=== PATIENT | female | born 1945 | race Caucasian/White ===

== ENCOUNTER 2018-05-30 08:27 | Outpatient (REF) | payer MEDICARE, SELFPAY ==
[2018-05-30 13:25] LABS: HCT 43.8 % (36.0-46.0); Mean Corp. HGB Concentration 34.2 g/dL (32.0-36.0); Mean Corpuscular Volume 87.6 fL (80-95); Mean Platelet Volume 11.4 fL (8.0-11.0); Platelet Count 353 x1000/uL (130-400); RBC Distribution Width 13.1 % (11.7-14.6); White Blood Cell Count 10.93 k/cumm (4.4-10.8)
[2018-05-30 15:15] LABS: ALT 39 U/L (12-78); AST 15 U/L (15-37); Albumin 4.1 g/dL (3.4-5.0); Alkaline Phosphatase 109 U/L (46-116); BUN 12 mg/dL (7-18); Bilirubin, Total 0.7 mg/dL (0.2-1.0); CREATININE 0.64 mg/dL (0.55-1.02); Chloride 100 mmol/L (98-107); Cholesterol 268 mg/dL (50-200); Glucose 169 mg/dL (70-100); HDL Cholesterol 39 mg/dL (40-60); LDL CHOLESTEROL 184 mg/dL (<100); Potassium 4.3 mmol/L (3.5-5.1); Sodium 138 mmol/L (136-145); Total Protein 7.3 g/dL (6.4-8.2); Triglyceride 245 mg/dL (30-150)
== END 2018-05-30 08:47 ==
LOC: NCHCN 08:27
PROVIDERS: PCP Family Medicine; Visit Provider Family Medicine
DX: I10 Essential (primary) hypertension (principal); E11.9 Type 2 diabetes mellitus without complications; E78.5 Hyperlipidemia, unspecified; E66.9 Obesity, unspecified
CPT/HCPCS: 80053; 80061; 83721; 85027

== ENCOUNTER 2018-06-13 01:09 | Outpatient (CLI) | payer MEDICARE, SELFPAY ==
--- NOTE | 2018-06-13 17:05 | DI.MAMMO_ITS ---
SYMPTOM/DIAGNOSIS: SCREENING, Z12.31 MAMMOGRAMS: Mammograms were interpreted according to the usual protocol including computer analysis with CAD system, tomosynthesis and C view imaging. Comparison is made with prior examinations. Breast density, category B. No suspicious masses or microcalcifications are seen. The nodular density in the upper outer quadrant of the right breast appears stable. Overall there has been no significant change compared to the prior examinations. IMPRESSION: No evidence for malignancy. Yearly mammography is recommended. Category 2B. MQSA ASSESSMENT OF FINDINGS: Negative with benign findings. Category 2. Patient will receive a letter notifying them of these results. BI-RADS category B. There are scattered areas of fibroglandular density.
== END 2018-06-13 01:29 ==
PROVIDERS: PCP Family Medicine; Visit Provider Family Medicine
DX: Z12.31 Encounter for screening mammogram for malignant neoplasm of breast (principal)
CPT/HCPCS: 77063; 77067

== ENCOUNTER 2018-09-21 02:22 | Outpatient (CLI) | payer MEDICARE, SELFPAY ==
[2018-09-21] MEDS: Omnipaque 350 MG/ML 100 ML BTL IV (12:04)
--- NOTE | 2018-09-21 12:04 | DI.CT_ITS ---
SYMPTOMS/DIAGNOSIS: ABD PAIN, R10.9 CT OF THE ABDOMEN AND PELVIS: There are no prior comparison exams. Images were performed from the lung bases through the ischial tuberosities after IV and oral contrast. The heart size is normal. The lung bases are clear. The liver shows mild fatty infiltration. The spleen is normal in size. The pancreas and adrenals are unremarkable. There is mid scarring at the posterior aspect of the right kidney. There is no hydronephrosis or evidence of stones. The bladder is unremarkable. The patient is status post hysterectomy. There is diverticulosis of the sigmoid but no evidence of diverticulitis. The appendix is not identified. There is a lipoma at the hepatic flexure measuring 2.6 cm in greatest dimension. The aorta is normal in diameter and shows mild atherosclerotic changes. No suspicious bony abnormalities are identified. IMPRESSION: Mild fatty infiltration of the liver. Lipoma at the hepatic flexure of the colon. Diverticulosis without evidence of diverticulitis.
== END 2018-09-21 02:42 ==
PROVIDERS: PCP Family Medicine; Visit Provider Family Medicine
DX: R10.9 Unspecified abdominal pain (principal); K76.0 Fatty (change of) liver, not elsewhere classified; D17.79 Benign lipomatous neoplasm of other sites; K57.30 Diverticulosis of large intestine without perforation or abscess without bleeding
CPT/HCPCS: 74177; J3490

== ENCOUNTER 2018-10-30 16:31 | Outpatient (REF) | payer MEDICARE, SELFPAY | END 2018-10-30 16:51 | LOC: NCHCN 16:31 | PROVIDERS: PCP Family Medicine; Visit Provider Family Medicine | DX: R30.0 Dysuria (principal) | CPT/HCPCS: 87086 ==

== ENCOUNTER 2019-05-03 11:16 | Emergency (ER) | payer MEDICARE, SELFPAY ==
[2019-05-03 11:29] VITALS: BP 156/90; PULSE 92; RESP 20; TEMP 37.1; O2SAT 98
--- NOTE | 2019-05-03 11:36 | ED.GENADUL_ITS ---
Discharge Plan Disposition Patient Disposition: HOME Discharge Details Chief Complaint: Chest Pain Clinical Impression: Chest pain Primary Care Provider: Brie Robles ED Provider: Ivan Valenzuela Home Meds and New Rx's Prescriptions: New ibuprofen 600 mg tablet 600 mg PO Q8H PRN (Reason: pain) Qty: 30 RF: 0 Continued lisinopril 5 mg Tablet 5 mg PO DAILY RF: 0 Discharge Instructions Instructions: Chest Pain (ED) Additional Instructions: Please use [id number] lidocaine patches. Dose according to label. Please take ibuprofen 600mg by mouth every 6 hours as needed for pain. Please contact your primary care physician to arrange follow-up. Return to the ER for any worsening or new concerning symptoms. Referrals: Brie Robles [Primary Care Provider] - Discharge Data Discharge Date/Time-TO BE ENTERED AT DEPARTURE: 05/03/19 15:52 Medical Decision Making 11:40 --73-year-old female here with intermittent chest pain over the past 3 weeks worse since last night and persisted radiating to her central chest and back. Consider ACS although atypical presentation. Screening ECG was reviewed and interpreted by me: Sinus rhythm 91 bpm, Q waves noted in lead III, no STEMI, nondiagnostic. Will send troponin. Pain does seem pleuritic in nature. Plan to obtain CT of the chest to assess for pulmonary embolism. 1:20 --CT of the chest interpreted by radiology: Negative for acute process. Initial labs reviewed and nondiagnostic. --Labs reviewed and nondiagnostic. Patient reassessed and feeling much better. Consider muscular etiology. Disposition decision was made weighing the risks and benefits of hospitalization versus outpatient treatment, the risk for further decompensation, and the patient's wishes. The patient was stable and requested discharge. Prior to discharge, my usual and customary return precautions were reviewed with the patient - this included follow-up instructions and reason to return to the emergency department if condition worsens, does not improve as expected, or other new concerns arise. HPI General Mode of arrival: ambulatory . Date/Time Provider Initiated Documentation: 05/03/19 11:25 . Limitations to Documentation: no limitations . Information obtained by: patient . HPI Narrative: 73-year-old female here with chief complaint of chest pain. Patient notes intermittent right-sided chest pain over the past 3 weeks. Pain comes and then completely resolves. Patient notes she started have pain again last night and then worse this morning. Pain is now severe. Pain is localized to right anterior chest and radiates across her chest into her back. She has some associated shortness of breath that she has difficulty taking a deep inspiration as this worsens pain. Related Data Home Medications Medication Instructions Recorded Confirmed ibuprofen 600 mg PO Q8H PRN #30 tab 05/03/19 lisinopril 5 mg PO DAILY 05/03/19 05/03/19 Previous Rx's Medication Instructions Recorded ibuprofen 600 mg PO Q8H PRN #30 tab 05/03/19 Allergies Allergy/AdvReac Type Severity Reaction Status Date / Time codeine Allergy Intermediate Nausea Unverified 05/03/19 13:21 General Stated Complaint: Chest Pain DELICIA: 2 Review of Systems All systems reviewed & are unremarkable except as noted in HPI and below Constitutional Constitutional: Denies fever(s) Cardiovascular Cardiovascular: Reports chest pain and Reports dyspnea Respiratory Respiratory: Reports dyspnea Gastrointestinal Gastrointestinal: Reports nausea (Patient did have an episode of nausea and vomiting) PFSH Social History Smoking/Tobacco Use Status: Current every day Alcohol Intake: never Substance use type: does not use Do you feel safe at home: Yes Exam Const General: cooperative and no acute distress HENMT Mouth: moist mucous membranes Eyes Conjunctivae: normal conjunctivae Sclera: normal sclerae Neck Neck: trachea midline and supple Chest Chest: normal inspection of the chest, no crepitus and No rash Resp Auscultation: clear to auscultation bilaterally, no rales, no rhonchi and no wheezes Cardio Jugular venous pressure: no JVD Rate: regular rate and not tachycardic Rhythm: regular rhythm GI Palpation: soft, not firm, no guarding, no masses, not rigid and nontender Skin General skin exam: no rashes or lesions noted Neuro General: alert, awake, oriented x3 and tone normal Extrem General: no edema Psych Appearance: grossly normal Mental Status: mental status grossly normal Affect: anxious affect Course Vital Signs Vital signs: Vital Signs Temperature 37.1 C 05/03/19 11:29 Pulse 92 H 05/03/19 11:29 Respiratory Rate 20 05/03/19 11:29 Blood Pressure 156/90 H 05/03/19 11:29 Pulse Oximetry 98 05/03/19 11:29 Temperature 37.1 C 05/03/19 11:29 Temperature Source Skin 05/03/19 11:29 Pulse 92 H 05/03/19 11:29 Respiratory Rate 20 05/03/19 11:29 Respiratory Effort Non-Labored 05/03/19 11:33 Blood Pressure 156/90 H 05/03/19 11:29 Blood Pressure Position Supine 05/03/19 11:29 Pulse Oximetry 98 05/03/19 11:29 Oxygen Delivery Method Room Air 05/03/19 11:29 Oxygen Flow Rate 0 05/03/19 11:29 Pain Level 8 05/03/19 11:29
[2019-05-03 11:53] LABS: Abs Immature Grans 0.03 k/cumm (0.0-0.09); Absolute Basophil Count 0.06 k/cumm (0.0-0.2); Absolute Monocyte Count 0.78 k/cumm (0.11-0.7); Basophils % 0.4; Eosinophils % 4.3; HCT 47.3 % (36.0-46.0); HGB 16.1 g/dL (12.0-15.5); Immature Grans % 0.2; Lymphocytes % 26.2; Mean Corpuscular Hemoglobin 29.5 pg (27.0-33.0); Mean Corpuscular Volume 86.6 fL (80-95); Mean Platelet Volume 10.8 fL (8.0-11.0); Monocytes % 5.6; Neutrophils % 63.3; Platelet Count 332 x1000/uL (130-400); RBC 5.46 m/cumm (4.00-5.20); White Blood Cell Count 13.91 k/cumm (4.4-10.8)
[2019-05-03 12:04] LABS: Absolute Lymphocyte Count 3.64 k/cumm (1.2-3.4); Absolute Neutrophil Count 8.81 k/cumm (1.2-6.7)
[2019-05-03 12:13] LABS: ALT 43 U/L (14-59); AST 18 U/L (15-37); Albumin 4.1 g/dL (3.4-5.0); Alkaline Phosphatase 123 U/L (46-116); Anion Gap 9.1 mmol/L (3-11); BUN 9 mg/dL (7-18); Bilirubin, Total 0.5 mg/dL (0.2-1.0); CO2 27.9 mmol/L (21.0-32.0); CREATININE 0.54 mg/dL (0.55-1.02); Calcium 9.8 mg/dL (8.5-10.1); Chloride 101 mmol/L (98-107); Glucose 145 mg/dL (74-106); Lipase 116 U/L (73-393); Magnesium 1.9 mg/dL (1.8-2.4); Potassium 4.1 mmol/L (3.5-5.1); Sodium 138 mmol/L (136-145); Total Protein 7.7 g/dL (6.4-8.2)
[2019-05-03 12:15] LABS: Troponin I < 0.05 ng/Ml (<0.06)
[2019-05-03 12:22] VITALS: PULSE 89; RESP 20
[2019-05-03 12:28] VITALS: RESP 20
[2019-05-03 12:30] VITALS: PULSE 86; RESP 12
--- NOTE | 2019-05-03 12:30 | DI.CT_ITS ---
EXAM: CT CHEST PE CTA CLINICAL HISTORY: rt sided chest pain TECHNIQUE: Imaging Protocol: Axial CT angiography was performed with multislice acquisition and mul tiplanar and/or 3D reconstructions. CONTRAST MATERIAL: Intravenous: Omnipaque 350 Contrast volume:100 mL contrast route:IV - Oral:No COMPARISON: CT ABDOMEN PELVIS W from 09/21/2018 FINDINGS: Pulmonary Arteries: No evidence of filling defect to suggest pulmonary emboli. Tracheobronchial tree: Patent where visualized. Mediastinum and Awa: No dominant adenopathy or fluid collection. Pulmonary parenchyma: Dependent atelectasis is present. No focal consolidating infiltrate is present . No architectural distortion. Pleura: No effusion or pneumothorax. Heart/Aorta: Atherosclerosis. No aneurysm or dissection. The heart is not dilated. No pericardial e ffusion or evidence of right heart strain. Upper abdomen: Unremarkable. Bones: Degenerative changes. IMPRESSION: No evidence of a pulmonary embolus, thoracic aortic dissection or aneurysm. The findings were discussed with the Emergency Department on the date of the examination. DATA REPOSITORY: All CT scans at this facility are submitted to the National Radiology Data Registry (NRDR) Dose Index Registry (DIR) with the [employer] (ACR). RADIATION OPTIMIZATION: All CT scans at this facility use at least one of these dose optimization te chniques: automated exposure control; mA and/or kV adjustment per patient size (includes targeted exa ms where dose is matched to clinical indication); or iterative reconstruction.
[2019-05-03] MEDS: Omnipaque 350 MG/ML 100 ML BTL IJ (13:02)
[2019-05-03] MEDS: Ketorolac 30 MG/ML VIAL IVP (13:27)
[2019-05-03] MEDS: Normal Saline 500 ML 1000 ML IV (13:27)
[2019-05-03] MEDS: Lidocaine 5% Patch 1 PATCH (14:08)
[2019-05-03 15:03] VITALS: BP 154/89; PULSE 91; RESP 18; O2SAT 100
[2019-05-03 15:41] LABS: Troponin I < 0.05 ng/Ml (<0.06)
== END 2019-05-03 15:52 | disposition home or self-care (01) ==
PROVIDERS: Emergency Provider Student in an Organized Health Care Education/Training Program; PCP Family Medicine
DX: R07.9 Chest pain, unspecified (principal); R06.02 Shortness of breath; F17.210 Nicotine dependence, cigarettes, uncomplicated
CPT/HCPCS: 36415; 71275; 80053; 83690; 93005; 96361; 96374; 99285; 83735; 84484; 85025; 93010; J1885; J3490

== ENCOUNTER 2019-11-29 13:28 | Emergency (ER) | payer MEDICARE, SELFPAY ==
[2019-11-29 13:36] VITALS: BP 146/104; PULSE 121; RESP 20; TEMP 36.6; O2SAT 97
--- NOTE | 2019-11-29 14:00 | W.ED.GENAD ---
Discharge Plan Disposition Patient Disposition: HOME Condition: Stable Discharge Details Chief Complaint: Cellulitis Clinical Impression: Lipoma of arm, Abscess of arm, left Primary Care Provider: Brie Robles ED Provider: Barb Hall Home Meds and New Rx's Prescriptions: New sulfamethoxazole-trimethoprim [Bactrim DS] 800-160 mg tablet 1 tab PO BID 3 Days Qty: 6 RF: 0 No Action lisinopril 5 mg Tablet 5 mg PO DAILY RF: 0 ibuprofen 600 mg tablet 600 mg PO Q8H PRN (Reason: pain) Qty: 30 RF: 0 Discharge Instructions Instructions: Lipoma (ED), Abscess Incision and Drainage (DC) Additional Instructions: Take antibiotics as prescribed. Please stop antibiotics if any allergic reaction, swelling, sensitivity to sun occurs. Please take with lots of water be careful in the sun. Keep incision covered allow to air dry at least 1 to 2 hours a day. Return for any worsening redness, swelling, fever or chills. Follow up with primary care provider in 3-5 days. Return to ED sooner if any worsening or concerns. Increase oral fluids. Please take Tylenol or Ibuprofen with food every 4-6 hours as needed for pain and swelling. Referrals: Brie Robles [Primary Care Provider] - Howard Simmons MD [MD CONSULTING PHYSICIAN] - Discharge Data Discharge Date/Time-TO BE ENTERED AT DEPARTURE: 11/29/19 14:55 Medical Decision Making 4-year-old female presents with left posterior elbow nodule. Patient states that she has had this infected cyst intermittently for the last year. She was seen 1 month ago by primary care who prescribed her cephalexin 5 mg twice daily x10 days which she completed. Patient states that the cyst was unchanged until about 4 days ago when it increased in size and has increased tenderness. Denies any axilla lymphadenopathy, no surrounding erythema or swelling. She does have some excoriations noted on the surface of her left arm which she reports is from her dog scratching her. She is allergic to codeine does take lisinopril for hypertension. She denies fever chills, nausea or vomiting. She does report a upset stomach which is how I know I have an infection. 1403: Plan is to do an incision and drainage with a wound culture. Will place patient on Bactrim to cover for possible MRSA. 1434: Left posterior elbow cyst I&D need small amount of white thick discharge expressed, culture obtained. Does appear to be a solid nodule possibly a lipoma. Will refer to dermatology and place patient on 3 days of Bactrim twice daily to treat empirically for possible infection. Patient instructed on home care, verbalized understanding. HPI General Mode of arrival: ambulatory. Date/Time Provider Initiated Documentation: 11/29/19 13:32. Limitations to Documentation: no limitations. Information obtained by: patient. HPI Narrative: 74-year-old female presents with left posterior elbow nodule. Patient states that she has had this infected cyst intermittently for the last year. She was seen 1 month ago by primary care who prescribed her cephalexin 5 mg twice daily x10 days which she completed. Patient states that the cyst was unchanged until about 4 days ago when it increased in size and has increased tenderness. Denies any axilla lymphadenopathy, no surrounding erythema or swelling. She does have some excoriations noted on the surface of her left arm which she reports is from her dog scratching her. She is allergic to codeine does take lisinopril for hypertension. She denies fever chills, nausea or vomiting. She does report a upset stomach which is how I know I have an infection. Related Data Home Medications Medication Instructions Recorded Confirmed ibuprofen 600 mg PO Q8H PRN #30 tab 05/03/19 11/29/19 lisinopril 5 mg PO DAILY 05/03/19 11/29/19 sulfamethoxazole-trimethoprim 1 tab PO BID 3 Days #6 tab 11/29/19 [Bactrim DS] Previous Rx's Medication Instructions Recorded ibuprofen 600 mg PO Q8H PRN #30 tab 05/03/19 sulfamethoxazole-trimethoprim 1 tab PO BID 3 Days #6 tab 11/29/19 [Bactrim DS] Allergies Allergy/AdvReac Type Severity Reaction Status Date / Time codeine Allergy Intermediate Nausea Unverified 11/29/19 13:41 General Stated Complaint: Cellulitis DELICIA: 4 Review of Systems Narrative: Constitutional: Negative for weight loss, alert and oriented, well groomed, normal body habitus, appears comfortable. Denies fever chills HEENT: Denies trauma, headaches, blurry vision, nasal discharge, sore throat, trouble swallowing. Chest: Denies chest pain, palpitations, irregular rhythm, hypertension. Respiratory: Denies Shortness of breath, cough, hemoptysis. GI: Denies abdominal pain, nausea, vomiting, diarrhea, constipation. Musculoskeletal: To have a nodule noted to her left posterior forearm has some scratches. Reports getting boils and nodules intermittently on and off for years. Hematologic: Denies easy bruising, intolerance to heat or cold, hair loss. [facility] Social History Smoking/Tobacco Use Status: Current every day Tobacco Type: cigarettes Alcohol Intake: never Substance use type: does not use Do you feel safe at home: Yes Exam Narrative Exam Narrative: Skin: Does have a small 1 cm x 1 cm nodule noted to the proximal portion of her left forearm. There is a central area of white purulent pus and fluctuance noted. No significant surrounding erythema or swelling. No axilla lymphadenopathy. Does have some multiple excoriations noted to the dorsal side of you look for. She reports this being from her dog. Const General: cooperative, healthy appearing, comfortable and no acute distress Nutritional Appearance: average body habitus Orientation: alert, awake and oriented x3 Course Vital Signs Vital signs: Vital Signs Temperature 36.6 C 11/29/19 13:36 Pulse 121 H 11/29/19 13:36 Respiratory Rate 20 11/29/19 13:36 Blood Pressure 146/104 H 11/29/19 13:36 Pulse Oximetry 97 11/29/19 13:36 Temperature 36.6 C 11/29/19 13:36 Temperature Source Tympanic 11/29/19 13:36 Pulse 121 H 11/29/19 13:36 Respiratory Rate 20 11/29/19 13:36 Respiratory Effort 11/29/19 13:38 Blood Pressure 146/104 H 11/29/19 13:36 Pulse Oximetry 97 11/29/19 13:36 Oxygen Delivery Method Room Air 11/29/19 13:36 Oxygen Flow Rate 0 11/29/19 13:36 Pain Level 2 11/29/19 13:36 Procedures Abscess I/D Site: Upper Extremity Side (if applicable): Left Sedation/analgesia: None Local Anesthetic: Lidocaine 1% and With Epi Amount of anesthesia used (mL): 2 Technique: Incised with #11 Blade Amount of fluid expressed (mL): 10 Irrigation: No Packing used?: None Complications: Other (None)
[2019-11-29] MEDS: Sulfameth/Trimeth DS TAB 1 TAB PO (14:39)
[2019-11-29] MEDS: Bacitracin 1 PACKET (14:39)
--- NOTE | 2019-11-29 18:59 | NUR.NOTE ---
Nursing Note: REFERRED TO DURMEROLOGY FOR CATHY GUTIERREZ
--- NOTE | 2019-12-02 11:38 | CMPROGNOTE_ITS ---
- If Service Date Differs Date of service: 12/02/19 Time of Service: 11:39 Care Management Progress Note Brie presents in the ED on 11/29/2019 for lipoma and abscess of left elbow. At the request of ED provider, CM coordinates referral to [facility] [place] dermatology.
== END 2019-11-29 14:55 | disposition home or self-care (01) ==
PROVIDERS: Emergency Provider Registered Nurse Emergency; PCP Family Medicine
DX: L02.414 Cutaneous abscess of left upper limb (principal); I10 Essential (primary) hypertension
CPT/HCPCS: 10060; 87070; 87205

== ENCOUNTER 2020-02-19 09:16 | Outpatient (REF) | payer MEDICARE, SELFPAY ==
[2020-02-19 22:25] LABS: HCT 46.9 % (36.0-46.0); HGB 15.7 g/dL (11.2-15.7); MCHC 33.5 % (32.0-36.0); MCV 89.7 fL (80-95); Platelet Count 300 10^3/uL (130-400); RBC 5.23 10^6/uL (3.93-5.22); RDW 12.6 % (11.7-14.6); RDW-SD 41.6 fL; WBC 9.03 10^3/uL (4.4-10.8)
[2020-02-19 22:39] LABS: Hemoglobin A1C 10.6 % (<5.7)
[2020-02-19 23:01] LABS: ALT 41 U/L (14-59); AST 15 U/L (15-37); Albumin 3.8 g/dL (3.4-5.0); Alkaline Phosphatase 121 U/L (46-116); Anion Gap 9.7 mmol/L (3-11); BUN 10 mg/dL (7-18); Bilirubin, Total 0.6 mg/dL (0.2-1.0); CO2 27.3 mmol/L (21.0-32.0); CREATININE 0.56 mg/dL (0.55-1.02); Calcium 9.5 mg/dL (8.5-10.1); Calculated LDL 148 mg/dL (<100); Chloride 100 mmol/L (98-107); Cholesterol 260 mg/dL (<200); Glucose 311 mg/dL (74-106); HDL Cholesterol 35 mg/dL (40-60); Potassium 4.5 mmol/L (3.5-5.1); Sodium 137 mmol/L (136-145); Total Protein 6.8 g/dL (6.4-8.2); Triglyceride 386 mg/dL (<150)
[2020-02-21 17:58] LABS: Uric Acid 2.7 mg/dL (2.6-6.0)
== END 2020-02-19 09:36 ==
LOC: NCHCN 09:16
PROVIDERS: PCP Family Medicine; Visit Provider Family Medicine
DX: I10 Essential (primary) hypertension (principal); E11.9 Type 2 diabetes mellitus without complications; E78.5 Hyperlipidemia, unspecified; M70.22 Olecranon bursitis, left elbow; L72.3 Sebaceous cyst
CPT/HCPCS: 80053; 80061; 85027; 83036; 84550

== ENCOUNTER 2020-04-13 21:10 | Outpatient (REF) | payer MEDICARE, SELFPAY | END 2020-04-13 21:30 | LOC: NCHCN 21:10 | PROVIDERS: PCP Family Medicine; Visit Provider Family Medicine | DX: R30.0 Dysuria (principal) | CPT/HCPCS: 87077; 87086; 87186 ==

== ENCOUNTER 2020-06-15 01:04 | Outpatient (CLI) | payer MEDICARE, SELFPAY ==
--- NOTE | 2020-06-15 | DI.MAMMO_ITS ---
EXAM: MG MAMMO SCREENING CLINICAL HISTORY: SCREENING, Z12.31 TECHNIQUE: Bilateral full field digital CC and MLO mammographic images were obtained with 3D tomosyn thesis and utilizing computer aided detection (CAD). COMPARISON: Available for comparison. FINDINGS: Masses/Architectural Distortion: The nodule in the upper outer quadrant of the right breast is stable . No suspicious masses or areas of architectural distortion. Microcalcifications: No suspicious pleomorphic-type are seen. Skin Thickening/Nipple Retraction: None. IMPRESSION: 1. No significant interval change with no specific features of malignancy noted. 2. Unless there is more urgent need, screening mammography is recommended, as per [employer] guidelines. BI-RADS Category 2 - Benign Findings Breast Density - Category B - Scattered areas of fibroglandular density Breast density category C or D implies that the patient has dense breast tissue. Dense breast tissue is very common and is not abnormal but dense breast tissue can make it harder to find cancer on a ma mmogram. Also, dense breast tissue may increase their breast cancer risk. This information about the result of the mammogram report was provided to the patient to raise their awareness. Use this report when you speak with the patient about their risks for breast cancer, which includes their family hist ory. At that time, you may recommend for more screening tests (Ultrasound or MRI) as they might be us eful based on their risk. A negative radiographic report should not delay biopsy if a dominant or clinically suspicious mass is present. Up to ten percent of cancers are not identified on mammography. A negative report may reinforce clinical impression. Adenosis and dense breasts may obscure an underlying neoplasm. False positive reports average 6 to 10%. Patient will receive a letter notifying them of these results.
== END 2020-06-15 01:24 ==
PROVIDERS: PCP Family Medicine; Visit Provider Family Medicine
DX: Z12.31 Encounter for screening mammogram for malignant neoplasm of breast (principal); N63.11 Unspecified lump in the right breast, upper outer quadrant
CPT/HCPCS: 77063; 77067

== ENCOUNTER 2020-08-24 04:42 | Outpatient (CLI) | payer MEDICARE, SELFPAY ==
--- NOTE | 2020-08-27 16:58 | W.NUTCONSULT ---
Date of service: 08/24/20 Time of Service: 13:00 Nutritional Consult ASSESSMENT: ASSESSMENT: Brie (75/F) presents with DM2, Hyperglycemia. Documentation shows A1c 11.3% and random fingerstick at this encounter 361mg/dl. She reports no breakfast and a lunch of five fried mozzarella sticks. She was prescribed Metformin 500mg by primary provider and glipizide 5mg ( 1/2 tablet) qd. She is very firm about not taking these DM meds r/t side effects. She mentioned GI issues and also was agitated when asked about the meds b/c she saw that possible very rare side effects could include stroke or . She is a smoker. She reports drinking coke zero with water. No ETOH. She has not been using finger sticks. NUTRITIONAL DIAGNOSIS: Hyperglycemia r/t DM AEB: BG 361 mg/dl, A1c 11.3 INTERVENTION: INTERVENTION: Reviewed CHO counting techniques and explained long-term effects of hyperglycemia. Requested to check on a C-peptide test from provider as she may be a hybrid between T2 and T-1. Consulted with Artie NevarezD r/t switching this patient to insulin with MD approval to get her numbers down. Patient seemed receptive to this. Explained desired ranges for BG levels. Recommended she record her FBG and and stagger her postprandial readings for three days to look for trends. Provided Accu-check Guide Me glucometer with ten test strips and recommended she call PCP for additional strips or another glucometer with strips. Explained that GI issues r/t DM meds is often temporary and the unintended consequences of uncontrolled DM may outweigh the temporary discomfort MONITORING AND EVALUATION: MONITOR/EVAL: This RD will F/U on 08/27 to check status and for compliance with finger stick regimen. Brie may benefit from insulin therapy as she has very high BG levels and is adverse to any DM meds that cause GI distress. recommend 10u basal insulin and titrate 2 units every three days to goal of 15-20 unit or until desired BG levels are reached. Time Spent in Nutritional Counseling and Treatment: 1 hour face to face/ 4 units
== END 2020-08-24 04:43 | disposition home or self-care (01) ==
LOC: DS 04:42
PROVIDERS: PCP Family Medicine; Visit Provider Dietitian, Registered
DX: E11.65 Type 2 diabetes mellitus with hyperglycemia (principal); Z71.3 Dietary counseling and surveillance
CPT/HCPCS: 97802

== ENCOUNTER 2021-04-14 09:09 | Outpatient (REF) | payer MEDICARE, SELFPAY ==
[2021-04-14 14:44] LABS: Hemoglobin A1C 7.5 % (<5.7)
[2021-04-14 14:53] LABS: Albumin 3.6 g/dL (3.4-5.0); BUN 8 mg/dL (7-18); Bilirubin, Total 0.4 mg/dL (0.2-1.0); CREATININE 0.6 mg/dL (0.55-1.02); Calcium 9.6 mg/dL (8.5-10.1); Calculated LDL 138 mg/dL (<100); Cholesterol 219 mg/dL (<200); Glucose 170 mg/dL (74-106); HDL Cholesterol 40 mg/dL (40-60); Total Protein 6.5 g/dL (6.4-8.2); Triglyceride 208 mg/dL (<150)
[2021-04-14 14:54] LABS: ALT 27 U/L (14-59); AST 11 U/L (15-37); Alkaline Phosphatase 108 U/L (46-116); Anion Gap 10.9 mmol/L (3-11); CO2 28.1 mmol/L (21.0-32.0); Chloride 101 mmol/L (98-107); Sodium 140 mmol/L (136-145)
== END 2021-04-14 09:10 | disposition home or self-care (01) ==
LOC: NCHCN 09:09
PROVIDERS: PCP Family Medicine; Visit Provider Family Medicine
DX: E11.9 Type 2 diabetes mellitus without complications (principal); I10 Essential (primary) hypertension; E78.5 Hyperlipidemia, unspecified
CPT/HCPCS: 80053; 80061; 83036

== ENCOUNTER 2021-06-22 18:10 | Outpatient (REF) | payer MEDICARE, SELFPAY | END 2021-06-22 18:11 | disposition home or self-care (01) | LOC: NCHCN 18:10 | PROVIDERS: PCP Family Medicine; Visit Provider Urology | DX: R30.0 Dysuria (principal) | CPT/HCPCS: 87086 ==

== ENCOUNTER 2021-07-05 16:09 | Outpatient (REF) | payer MEDICARE, SELFPAY | END 2021-07-05 16:10 | disposition home or self-care (01) | LOC: NCHCN 16:09 | PROVIDERS: PCP Family Medicine; Visit Provider Family Medicine | DX: R30.0 Dysuria (principal) | CPT/HCPCS: 87086 ==

== ENCOUNTER 2021-12-23 22:14 | Outpatient (REF) | payer MEDICARE, SELFPAY ==
[2021-12-23 22:13] LABS: Bilirubin Negative (Negative); Blood Small (Negative); Clarity Cloudy (Clear); Glucose Negative (Negative); Ketones Negative (Negative); Leukocyte Esterase Large (Negative); Nitrite Negative (Negative); Specific Gravity 1.025 (1.005-1.025); Urobilinogen 0.2 EU/dL (Up TO 0.2)
[2021-12-23 22:24] LABS: Bacteria Few HPF (Negative); Crystals Negative HPF (Negative); Epithelial Cells Few HPF (Negative); Mucus Negative (Negative); Other Cells Mod Transitional (Negative); WBC >50 HPF (0-5)
[2021-12-23 22:25] LABS: C & S Indicated? C&S Done As Ordered
== END 2021-12-23 22:15 | disposition home or self-care (01) ==
LOC: NCHCN 22:14
PROVIDERS: PCP Family Medicine; Visit Provider Internal Medicine
DX: R30.0 Dysuria (principal)
CPT/HCPCS: 81003; 81015; 87086

== ENCOUNTER 2021-12-27 16:04 | Outpatient (REF) | payer MEDICARE, SELFPAY | END 2021-12-27 16:05 | disposition home or self-care (01) | LOC: LBN 16:04 | PROVIDERS: PCP Family Medicine; Visit Provider Nurse Practitioner Family | DX: R30.0 Dysuria (principal) | CPT/HCPCS: 87086 ==

== ENCOUNTER 2022-09-07 01:11 | Outpatient (CLI) | payer MEDICARE, SELFPAY ==
--- NOTE | 2022-09-07 | DI.RAD_ITS ---
Exam(s) XR HIP PELVIS ADULT BL EXAM: XR HIP PELVIS ADULT BL CLINICAL HISTORY: RT HIP PAIN, M25.551. TECHNIQUE: 2D digital imaging was performed. COMPARISON: No exams were available for comparison FINDINGS: 3 views No evidence of pelvic nor hip fracture. No obvious degenerative changes in the hips. SI joints are age-appropriate. Bone density normal. No osseous lesions. IMPRESSION: No significant osseous findings. DATA REPOSITORY: RADIATION DOSE DELIVERED:
--- NOTE | 2022-09-07 | DI.RAD_ITS ---
Exam(s) XR SACRUM EXAM: XR SACRUM CLINICAL HISTORY: RT HIP PAIN, M25.551. TECHNIQUE: 2D digital imaging was performed. COMPARISON: No exams were available for comparison FINDINGS: 3 views No evidence of sacral nor obvious coccyx fracture. Advanced disc space narrowing at L5-S1 level note d as well as advanced facet arthropathy in lower lumbar spine. Visualized hips appear unremarkable. IMPRESSION: As above. DATA REPOSITORY: RADIATION DOSE DELIVERED:
== END 2022-09-07 01:31 ==
PROVIDERS: PCP Family Medicine; Visit Provider Family Medicine
DX: M53.3 Sacrococcygeal disorders, not elsewhere classified (principal); M25.551 Pain in right hip; M51.37 Other intervertebral disc degeneration, lumbosacral region; M47.817 Spondylosis without myelopathy or radiculopathy, lumbosacral region
CPT/HCPCS: 73521; 72220

== ENCOUNTER 2022-09-09 13:15 | Emergency (ER) | payer MEDICARE, SELFPAY ==
[2022-09-09 13:40] VITALS: BP 180/84; PULSE 84; RESP 16; TEMP 36.8; O2SAT 96
--- NOTE | 2022-09-09 14:38 | DI.RAD_ITS ---
Exam(s) XR LUMBAR SPINE COMPLETE EXAM: XR LUMBAR SPINE COMPLETE CLINICAL HISTORY: back pain. TECHNIQUE: 2D digital imaging was performed. Five views. COMPARISON: No exams were available for comparison FINDINGS: The exam is limited by overlying bowel gas. BONES: No fracture or destructive lesion. Vertebral body heights are maintained. facet hypertrophy present greatest at L4-5 and L5-S1. No spondylolysis DISKS: Narrowing of the L L5-S1 disc space. Remaining disc spaces are maintained. ALIGNMENT: Slight spondylolisthesis at L4-5 secondary to facet degenerative changes. SOFT TISSUE: Normal. IMPRESSION: Degenerative changes greatest at L4-5 and L5-S1 DATA REPOSITORY: RADIATION DOSE DELIVERED:
--- NOTE | 2022-09-09 14:44 | W.ED.GENAD ---
Discharge Plan Disposition Patient Disposition: Home Discharge Details Clinical Impression: Back pain Primary Care Provider: Brie Robles ED Provider: Amos Warren Home Meds and New Rx's Prescriptions: New prednisone 20 mg tablet 40 mg PO DAILY Qty: 8 0RF tramadol 50 mg tablet 50 mg PO BID PRN (Reason: pain) Qty: 8 0RF Continued lisinopril 5 mg Tablet 5 mg PO DAILY methocarbamol 500 mg Tablet 1,000 mg PO BID acetaminophen 650 mg Tablet 650 mg PO PRN Held ibuprofen 600 mg tablet 600 mg PO Q8H PRN (Reason: pain) Qty: 30 0RF Hold Instructions: Please hold until you have completed your oral steroids Discharge Instructions Instructions: Back Pain (ED) Additional Instructions: Please take medications as instructed and you may perform light activities as tolerated. 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 Please follow-up with your primary care for reassessment and I would recommend starting physical therapy as directed by your primary care provider. If you develop any new or significant worsening of symptoms feel free to return the emergency department for reassessment. Referrals: Brie Robles [Primary Care Provider] - 1 week Discharge Data Discharge Date/Time-TO BE ENTERED AT DEPARTURE: 09/09/22 15:38 Medical Decision Making Patient presenting to the emergency department for chief complaint of lumbar back pain for the last 6 months. Patient denies any known injury or trauma, states waxing and waning symptoms but has noticed some progressive worsening. She does state that she recently had some x-rays performed for the same reason and was placed upon a muscle relaxer but muscle relaxer has had no benefit and she has been continuing to take her acetaminophen and ibuprofen. Physical exam shows lumbar spinal tenderness along with some tenderness with rotation of the right hip. Based upon review of systems and exam patient is at LOW risk for ABDOMINAL AORTIC ANEURYSM, CAUDA EQUINA SYNDROME, EPIDURAL MASS LESION, SPINAL STENOSIS, OR HERNIATED DISK CAUSING SEVERE STENOSIS, thus I consider the discharge disposition reasonable. Patient has no weakness to the extremities, equal DTRs, normal sensation, denies any difficulty with ambulation. Review her recent imaging but does show some degenerative changes of L5-S1 but given the other areas of tenderness on the lumbar spine will perform lumbar imaging. Given that patient is already taking appropriate oskc-ndf-gnryjgv meds with little to no benefit we will try p.o. tramadol to see if this gives her better pain control. After review of radiological imaging and radiologist interpretation patient does have degenerative changes but no emergent findings are noted. I do feel that it is appropriate for patient to follow-up with primary care provider for reassessment. Did discuss with patient risk versus benefit of steroid trial which she is willing to do and understands the risk. She was asked to hold any NSAIDs while taking the steroids which she feels is reasonable. Patient placed upon follow-up list with primary care provider we have discussed the diagnosis and risks, and we agree with discharging home to follow-up with their primary doctor. We also discussed returning to the Emergency Department immediately if new or worsening symptoms occur. We have discussed the symptoms which are most concerning (e.g., saddle anesthesia, urinary or bowel incontinence or retention, changing or worsening pain) that necessitate immediate return. This documentation was generated using [employer] dictation system, please disregard any oddities of phrase or misspellings. Imaging Data Radiologic Study: Imaging: X-Ray Radiologist's impression: Exam(s) XR LUMBAR SPINE COMPLETE EXAM: XR LUMBAR SPINE COMPLETE CLINICAL HISTORY: back pain. TECHNIQUE: 2D digital imaging was performed. Five views. COMPARISON: No exams were available for comparison FINDINGS: The exam is limited by overlying bowel gas. BONES: No fracture or destructive lesion. Vertebral body heights are maintained. facet hypertrophy present greatest at L4-5 and L5-S1. No spondylolysis DISKS: Narrowing of the L L5-S1 disc space. Remaining disc spaces are maintained. ALIGNMENT: Slight spondylolisthesis at L4-5 secondary to facet degenerative changes. SOFT TISSUE: Normal. IMPRESSION: Degenerative changes greatest at L4-5 and L5-S1 HPI General Mode of arrival: wheelchair. Date/Time Provider Initiated Documentation: 09/09/22 13:16. Limitations to Documentation: no limitations. Information obtained by: patient, RN notes reviewed and old records reviewed. History of Present Illness 77 year old F presents to the emergency department with the chief complaint of Back pain radiating into thigh and hip, described as moderate and severe, with intensity rated at 8. Quality is described as aching, and is localized to the back. Patient extremity. Patient started experiencing this month(s) (6) and it has been constant. No relieving factors improve symptom(s), No exacerbating factors reported . Patient notes no other symptoms.. Patient did receive the following treatments prior to arrival, NSAID Related Data Home Medications Medication Instructions Recorded Confirmed ibuprofen 600 mg tablet 600 mg PO Q8H PRN pain #30 tabs 05/03/19 11/29/19 lisinopril 5 mg tablet 5 mg PO DAILY 05/03/19 11/29/19 acetaminophen 650 mg tablet 650 mg PO PRN 09/09/22 methocarbamol 500 mg tablet 1,000 mg PO BID 09/09/22 09/09/22 prednisone 20 mg tablet 40 mg PO DAILY #8 tabs 09/09/22 tramadol 50 mg tablet 50 mg PO BID PRN pain #8 tabs 09/09/22 Previous Rx's Medication Instructions Recorded ibuprofen 600 mg tablet 600 mg PO Q8H PRN pain #30 tabs 05/03/19 prednisone 20 mg tablet 40 mg PO DAILY #8 tabs 09/09/22 tramadol 50 mg tablet 50 mg PO BID PRN pain #8 tabs 09/09/22 Allergies Allergy/AdvReac Type Severity Reaction Status Date / Time codeine Allergy Intermediate Nausea Unverified 11/29/19 13:41 General Stated Complaint: Nk/Back Pain DELICIA: 3 Review of Systems Constitutional Constitutional: Denies chills and Denies fever(s) Cardiovascular Cardiovascular: Denies chest pain and Denies dyspnea on exertion Respiratory Respiratory: Denies cough and Denies dyspnea on exertion Gastrointestinal Gastrointestinal: Denies abdominal pain, Denies change in bowel habits, Denies diarrhea, Denies nausea and Denies vomiting Genitourinary Genitourinary: Denies urinary incontinence Musculoskeletal Musculoskeletal: Reports as per HPI and Reports back pain Neurologic Neurologic: Denies sensory deficit PFSH All Active Problems Back pain (Acute) Otalgia, right ear (Acute) Tobacco use (Acute) Social History Smoking/Tobacco Use Status: Current every day Tobacco Type: cigarettes Smoking risk assessment performed?: Yes Alcohol Intake: never Substance use type: does not use Do you feel safe at home: Yes Do you feel safe in your relationship?: Yes Additional Social history: at bedside Exam Const General: cooperative and no acute distress Orientation: alert, awake and oriented x3 Neck Neck: normal visual inspection, full ROM and no meningeal signs Resp Effort & Inspection: normal respiratory effort Auscultation: clear to auscultation bilaterally Cardio Rate: regular rate Rhythm: regular rhythm Heart Sounds: S1 normal and S2 normal Back/Spine/Pelvis Thoracic/Lumbar Spine: pain with thoraco-lumbar ROM, thoraco-lumbar ROM limited, No thoracic spinal tenderness, lumbar spinal tenderness and straight leg raise positive Pelvis: no pain with anterior-posterior compression, no pain with lateral compression, no buttock tenderness and no sciatic notch tenderness Neuro General: patient alert, patient awake and patient oriented x3 DTR's: Rt Patellar: 2+, Lt Patellar: 2+, Rt Ankle: 2+ and Lt Ankle: 2+ Extrem Right lower extremity: hip/thigh Details: normal to inspection and abnormal ROM Details: pain with passive ROM during Details: to ABduction and to external rotation, knee Details: normal to inspection and lower leg Details: normal to inspection Course Vital Signs Vital signs: Vital Signs Temperature 36.8 C 09/09/22 13:40 Pulse 84 09/09/22 13:40 Respiratory Rate 16 09/09/22 13:40 Blood Pressure 180/84 H 09/09/22 13:40 Pulse Oximetry 96 09/09/22 13:40 Temperature 36.8 C 09/09/22 13:40 Temperature Source Temporal Artery Scan 09/09/22 13:40 Pulse 84 09/09/22 13:40 Respiratory Rate 16 09/09/22 13:40 Respiratory Effort Normal, Non-Labored 09/09/22 13:52 Blood Pressure 180/84 H 09/09/22 13:40 Blood Pressure Position Sitting 09/09/22 13:40 Pulse Oximetry 96 09/09/22 13:40 Oxygen Delivery Method Room Air 09/09/22 13:40 Oxygen Flow Rate 0 09/09/22 13:40 Pain Level 10 09/09/22 13:40
[2022-09-09] MEDS: traMADol 50 MG TAB PO (14:50)
== END 2022-09-09 15:38 | disposition home or self-care (01) ==
PROVIDERS: Emergency Provider Nurse Practitioner Family; PCP Family Medicine
DX: M47.817 Spondylosis without myelopathy or radiculopathy, lumbosacral region (principal)
CPT/HCPCS: 99283; 72110; 99284

== ENCOUNTER 2022-11-07 15:40 | Outpatient (REF) | payer MEDICARE, SELFPAY ==
[2022-11-07 18:05] LABS: Bilirubin Negative (Negative); Blood Large (Negative); Clarity Cloudy (Clear); Glucose >=1000 mg/dL (Negative); Ketones Negative (Negative); Leukocyte Esterase Small (Negative); Nitrite Positive (Negative); Specific Gravity >= 1.030 (1.005-1.025); Urobilinogen 0.2 mg/dL (Up to 0.2); pH 5.5 (5-8)
[2022-11-07 18:29] LABS: Bacteria Moderate HPF (Negative); Casts Negative LPF (Negative); Crystals Negative HPF (Negative); Epithelial Cells Rare HPF (Negative); Mucus Negative (Negative); RBC >50 HPF (0-2); WBC 20-50 HPF (0-5)
[2022-11-07 18:30] LABS: C & S Indicated? C&S Done As Ordered
== END 2022-11-07 15:41 | disposition home or self-care (01) ==
LOC: NCHCN 15:40
PROVIDERS: PCP Family Medicine; Visit Provider Family Medicine
DX: N39.0 Urinary tract infection, site not specified (principal)
CPT/HCPCS: 87077; 81003; 81015; 87086; 87186

== ENCOUNTER 2024-01-15 21:17 | Outpatient (REF) | payer MEDICARE, SELFPAY | END 2024-01-15 21:18 | disposition home or self-care (01) | LOC: NCHCN 21:17 | PROVIDERS: PCP Family Medicine; Visit Provider Family Medicine | DX: R30.0 Dysuria (principal); R82.89 Other abnormal findings on cytological and histological examination of urine | CPT/HCPCS: 87077; 87086; 87186 ==

== ENCOUNTER → 2024-05-27 09:17 | Outpatient (BNVA) | payer MEDICARE, SELFPAY | PROVIDERS: PCP Family Medicine; Referring Provider Family Medicine; Visit Provider Physician Assistant | DX: G56.02 Carpal tunnel syndrome, left upper limb (principal) | CPT/HCPCS: 20526; 99213; J1010 ==

== ENCOUNTER 2024-06-28 15:30 | Inpatient (IN) | payer MEDICARE, SELFPAY ==
[2024-06-28] VITALS (65 sets, daily range): BP systolic 172–226; BP diastolic 76–139; PULSE 82–103; RESP 16–18; TEMP 37.2–37.6; O2SAT 95–98
--- NOTE | 2024-06-28 15:30 | DI.RAD_ITS ---
Exam(s) XR HAND RT COMPLETE EXAM: XR HAND RT COMPLETE CLINICAL HISTORY: Cat bites hand infection. TECHNIQUE: 2D digital imaging was performed. COMPARISON: No exams were available for comparison FINDINGS: 3 views There is dorsal soft tissue swelling over the metacarpals. There is no evidence of fracture or dislocation nor radiopaque foreign bodies. No osseous lesions. No evidence of osteomyelitis. IMPRESSION: Dorsal soft tissue swelling. No fractures. Given the history here there is most probably tenosynovi tis, possibly infected/purulent. Recommend follow-up MRI. DATA REPOSITORY: RADIATION DOSE DELIVERED:
--- NOTE | 2024-06-28 15:45 | ED.GENADUL_ITS ---
Discharge Plan Disposition Patient Disposition: Admit to [facility] Discharge Details Clinical Impression: Cat bite of right hand Primary Care Provider: Brie Robles ED Provider: Angel Juares Home Meds and New Rx's Prescriptions: No Action insulin glargine [Lantus Solostar U-100 Insulin] 100 unit/mL (3 mL) insulin pen 5 unit subcut QAM nabumetone 500 mg tablet 500 mg PO DAILY PRN amoxicillin-pot clavulanate 875-125 mg tablet 1 tab PO BID pot bicarb-sod bicarb-cit ac Tablet, Effervescent 1 tab PO PRN HPI General Date/Time Provider Initiated Documentation: 06/28/24 15:42 . HPI Narrative: MDM This is a normothermic but tachycardic [id number] 79-year-old female failing outpatient management for right dominant hand cat bite for which she will receive broad-spectrum antibiotics with ampicillin-sulbactam and vancomycin. I was planning on updating the patient's tetanus however as she had last had tetanus in 2019 however she declined to know if she felt that she would have a bad reaction to this. I explained that tetanus immunization was safe and effective at preventing tetanus. I counseled her on the risk of tetanus. She continued to decline her recommended tetanus vaccine. I am concerned about the possibility of sepsis so I will draw blood cultures and treat with lactate. She has no pain with passive range of motion and no fusiform swelling and no tenderness with percussion along with flexor tendon sheath so I am not concerned for flexor tenosynovitis. Will obtain x-rays to assess for any retained teeth. Will touch base with orthopedics but based on patient's age symptoms we will plan to admit to hospitalist service. 5:15 PM I spoke with Dr. Hardin from the orthopedic team. He advised hospitalization on the hospitalist service for IV antibiotics. I was in touch with Dr. Chase who graciously agreed to accept the patient for hospitalization. Lactate negative. I am not concern for neurovascular compromise nor any deep space infection. X-ray negative for any retained foreign material. Patient did have elevated inflammatory markers. She also had leukocytosis. She received 500 cc of LR. Tachycardia resolved. Chronic conditions affecting the care of the patient: Elevated BMI diabetes hypertension History obtained from an outside historian: Partner External record review: N/A Medications: Antibiotics fluids Social determinants of health affecting disposition: tobacco use Management discussed with: Orthopedics hospitalist Treatment/interventions considered: N/A Response to therapies provided: N/A HPI This is a plngi-dqdi-zcgtozza tobacco using obese diabetic right emergency department via private vehicle in setting of right hand pain. Patient reports that she was bit yesterday morning by her cat. She reports her cat is up-to-date with immunizations. She seen yesterday at urgent care and received amoxicillin clavulanic acid. She was able to take 1 dose but attempted to take doses again this morning this afternoon but was unable to keep down and she vomited. She also notes that she has had streaking signs of infection and increased swelling. There is redness she notes tracking up her right forearm. She has not had any fevers. She had her tetanus updated in 2019. Exam General: Well-appearing in no acute distress speaking in complete sentences. Head: Normocephalic, atraumatic. Eye: Extraocular eye movements intact. No conjunctival injection. No scleral icterus. Ear, nose, mouth, throat: Grossly normal inspection. Normal voice, handling secretions normally. Neck: Trachea midline. Cardiovascular: Well-perfused distal extremities. Respiratory: Nonlabored respiration. Gastrointestinal: Nondistended abdomen. Musculoskeletal: Right hand with 2 puncture bites 1 at the base of the right thumb. Second puncture just at the base of the index finger just distal to the distal radius. There is marked erythema and swelling. On the volar side of the patient's forearm there are streaking signs of infection extending proximally. Cap refill less than 2 seconds in the left finger tap. 2+ right radial pulse. Sensation and motor function intact in right hand across the radial, median, and ulnar nerve distributions. Patient does have difficulty in flexing and extending her right thumb. No fusiform swelling to fingers. No tenderness to percussion along flexor tendon sheath. Skin: Normal for age and race, grossly normal temperature and turgor. No acute rash. Neurologic: Alert and appropriate, no apparent acute deficits. Psychiatric: Mood and manner are appropriate. Grooming and personal hygiene are appropriate. Related Data Home Medications ?Medication ?Instructions ?Recorded ?Confirmed insulin glargine 100 unit/mL (3 5 unit subcut QAM 04/30/24 06/28/24 mL) subcutaneous pen (Lantus Solostar U-100 Insulin) nabumetone 500 mg tablet 500 mg PO DAILY PRN 12/03/24 01/31/25 amoxicillin 875 mg-potassium 1 tab PO BID 06/28/24 06/28/24 clavulanate 125 mg tablet pot bicarb-sod bicarb-citric acid 1 tab PO PRN 06/28/24 06/28/24 effervescent tablet Allergies Allergy/AdvReac Type Severity Reaction Status Date / Time codeine Allergy Intermediate Nausea Unverified 06/28/24 15:42 General Stated Complaint: AnimalBite DELICIA: 3 Course Vital Signs Vital signs: Vital Signs Temperature 37.2 C 06/28/24 15:32 Pulse 103 H 06/28/24 15:32 Respiratory Rate 16 06/28/24 15:32 Blood Pressure 197/88 H 06/28/24 15:32 Pulse Oximetry 97 06/28/24 15:32 Temperature 37.2 C 06/28/24 15:32 Temperature Source Oral 06/28/24 15:32 Pulse 103 H 06/28/24 15:32 Respiratory Rate 16 06/28/24 15:32 Blood Pressure 197/88 H 06/28/24 15:32 Blood Pressure Position Sitting 06/28/24 15:32 Pulse Oximetry 97 06/28/24 15:32 Oxygen Delivery Method Room Air 06/28/24 15:32 Oxygen Flow Rate 0 06/28/24 15:32 Pain Level 9 06/28/24 15:32 Comment BP normally 150's systolic states BP was high at last night 06/28/24 15:32 Lab/Test Results Lab/Test Results: 06/28/24 15:43 Blood Blood Culture - Pending 06/28/24 15:43 Blood Blood Culture - Pending Medical Decision Making Quality:SDOH Health Related Social Needs: 2 No Data to Display PFSH All Active Problems Cat bite of right hand (Acute) Carpal tunnel syndrome, left (Acute) Steroid injection: 05/27/2024 Essential hypertension (Acute) Obesity (Chronic) Hyperlipidemia (Acute) Type 2 diabetes mellitus (Acute) Otalgia, right ear (Acute) Tobacco use (Acute) Surgical History (Updated 04/30/24 @ 08:54 by Deanne Donato RN) History of hysterectomy History of appendectomy Social History Smoking/Tobacco Use Status: Current every day Tobacco Type: cigarettes Smoking risk assessment performed?: Yes Alcohol Intake: never Substance use type: does not use Do you feel safe at home: Yes Do you feel safe in your relationship?: Yes Additional Social history: with pt
[2024-06-28 16:21] LABS: Abs Immature Grans 0.06 10^3/uL (0.0-0.06); Absolute Basophil Count 0.02 10^3/uL (0.0-0.2); Absolute Eosinophil Count 0.17 10^3/uL (0.0-0.7); Absolute Lymphocyte Count 0.78 10^3/uL (1.2-3.4); Basophils % 0.2 %; Eosinophils % 1.4 %; HCT 45.9 % (36.0-46.0); HGB 15.3 g/dL (11.2-15.7); Immature Grans % 0.5 %; Lymphocytes % 6.3 %; MCH 29.4 pg (27.0-33.0); MCHC 33.3 % (32.0-36.0); MCV 88 fL (80-95); MPV 10.9 fL (8.0-11.0); Monocytes % 4.8 %; Neutrophils % 86.8 %; Platelet Count 279 10^3/uL (130-400); RDW 12.9 % (11.7-14.6); RDW-SD 41.7 fL; WBC 12.45 10^3/uL (4.4-10.8)
[2024-06-28 16:22] LABS: Absolute Neutrophil Count 10.81 10^3/uL (1.2-6.7); ESR 19 mm/hr (0-30)
[2024-06-28] MEDS: Lactated Ringers 500 ML IV (16:30)
[2024-06-28] MEDS: VANCOMYCIN/WATER (PEG) 1.5 GM/300 ML BAG IVPB (16:30)
[2024-06-28 16:37] LABS: Anion Gap 9.1 mmol/L (3-11); BUN 9 mg/dL (7-18); C-Reactive Protein 8.35 mg/dL (<or=0.5); CO2 28.9 mmol/L (21.0-32.0); CREATININE 0.6 mg/dL (0.55-1.02); Calcium 9.3 mg/dL (8.5-10.1); Chloride 103 mmol/L (98-107); Estimated GFR 92.39 (mL/min/1.73m2); Glucose 175 mg/dL (74-106); Potassium 3.9 mmol/L (3.5-5.1); Sodium 141 mmol/L (136-145)
[2024-06-28] MEDS: AMPICILLIN/SULBACTAM 3 GM in Normal Saline 100 ML IVPB ×2 (16:47→21:45)
--- NOTE | 2024-06-28 17:35 | HPE_ITS ---
Date of service: 06/28/24 Time of Service: 17:35 Assessment and Plan Assessment and plan (1) Type 2 diabetes mellitus: Status: Acute Assessment and plan: PT does take lantus only and does not appear to be on any daniel inhibitors. Her last a1c was fair but would recommend outpatient optimization (2) Cat bite of right hand: Status: Acute Assessment and plan: Pt failed outpatient Augmentin but it was more of a tolerance issue than actual antibiotic failure. None the less we will start her on Unasyn and monitor for improvements. Per my discussion with Dr Juares (ED), Orthopaedics is aware and has viewed the films History of Present Illness History of Present Illness Chief Complaint: cat bite Narrative: This is a 79-year-old female who presented to the ED after failed outpatient therapy for cat bite. Patient states that yesterday while she was petting her cat the cat bit her on her right hand. She went to a local urgent care was started on Augmentin but had multiple episodes of emesis and worsening symptomology so she came into the ED for further evaluation and treatment. Per the patient, she does have multiple intolerances but not necessarily allergies to pain meds as well as antibiotics. The patient was seen in the ED and then a consult to orthopedics was placed. Dr. Hardin the orthopedic service recommended IV antibiotics and we were subsequently called for admission. In reviewing her images of hand film did show dorsal soft tissue swelling with possible tenosynovitis and infection. There was a recommendation for a a MRI. Patient also was noted to have a mild leukocytosis at 12.45 little bit of a left shift electrolytes were within normal limits glucose 179 her last A1c was 6.9 and this was in March 2024 which indicates at least fair control. Review of Systems All systems reviewed & are unremarkable except as noted in HPI and below PFSH All Active Problems Cat bite of right hand (Acute) Carpal tunnel syndrome, left (Acute) Steroid injection: 05/27/2024 Essential hypertension (Acute) Obesity (Chronic) Hyperlipidemia (Acute) Type 2 diabetes mellitus (Acute) Otalgia, right ear (Acute) Tobacco use (Acute) Surgical History (Updated 04/30/24 @ 08:54 by Deanne Donato RN) History of hysterectomy History of appendectomy Social History Smoking/Tobacco Use Status: Current every day Tobacco Type: cigarettes Smoking risk assessment performed?: Yes Alcohol Intake: never Substance use type: does not use Do you feel safe at home: Yes Do you feel safe in your relationship?: Yes Additional Social history: with pt Meds Allergies and Home Medications Allergies Allergy/AdvReac Type Severity Reaction Status Date / Time codeine Allergy Intermediate Nausea Unverified 06/28/24 15:42 Home Medications ?Medication ?Instructions ?Recorded ?Confirmed ?Type insulin glargine 100 unit/mL (3 5 unit subcut QAM 04/30/24 06/28/24 History mL) subcutaneous pen (Lantus Solostar U-100 Insulin) nabumetone 500 mg tablet 500 mg PO DAILY PRN 04/30/24 06/28/24 History amoxicillin 875 mg-potassium 1 tab PO BID 06/28/24 06/28/24 History clavulanate 125 mg tablet pot bicarb-sod bicarb-citric acid 1 tab PO PRN 06/28/24 06/28/24 History effervescent tablet Exam Narrative Exam Narrative: Head eyes ears nose and throat: Normocephalic atraumatic mucous membranes moist oropharynx is clear Neck: No lymphadenopathy no JVD no thyromegaly Cardiovascular: Tachycardia but no murmur rubs or gallops Pulm: Clear to auscultation bilaterally with good air exchange no accessory muscle use noted Abdomen: Soft nontender nondistended bowel sounds active Extremities: Right upper extremity does show some erythema and edema in her right hand mostly on the dorsal surface. There is a mild streak in the ventral surface going up her forearm. Her hand is warm to touch. She can make a fist but not complete pleat closure. Neurologic: Cranial nerves II through XII are intact as tested reflexes upper extremity normal as tested Psych: Alert and orient x 3 no apparent distress General: 79-year-old female appears her stated age no apparent distress Results Labs 06/28/24 16:10 06/28/24 16:10 Labs: Laboratory Results - last 24 hr 06/28/24 16:10 WBC 12.45 H RBC 5.20 Hgb 15.3 Hct 45.9 MCV 88 MCH 29.4 MCHC 33.3 RDW 12.9 Plt Count 279 MPV 10.9 Immature Gran % 0.5 Neutrophils % 86.8 Lymphocytes % 6.3 Monocytes % 4.8 Eosinophils % 1.4 Basophils % 0.2 Nucleated RBC % 0.0 Absolute Neutrophils 10.81 H Absolute Lymphocytes 0.78 L Absolute Monocytes 0.60 Absolute Eosinophils 0.17 Absolute Basophils 0.02 ESR 19 VBG Lactate 1.0 Sodium 141 Potassium 3.9 Chloride 103 Carbon Dioxide 28.9 Anion Gap 9.1 BUN 9 Creatinine 0.6 Est GFR (CKD-EPI 2020) 92.39 Glucose 175 H Calcium 9.3 C-Reactive Protein 8.35 H Last Vital Signs Temp 37.2 C 06/28/24 15:32 Pulse 94 H 06/28/24 16:47 Resp 16 06/28/24 15:32 BP 190/76 H 06/28/24 16:31 Pulse Ox 97 06/28/24 16:47 Time Spent Time spent with Patient: 40-54 minutes Time was spent: preparing to see the patient(eg.review tests), obtaining and/or reviewing separately otained hiistory, ordering medications,tests, procedures, referring, communicating with other health medical care manager, indepentently interpreting results, counseling the patient and care coordination
--- NOTE | 2024-06-28 18:00 | W.PC.ACHO ---
Registration Status: Primary Language: Preferred Language: ED Information & Data Chief Complaint AnimalBite 06/28/24 15:48 Triage Note bit on right hand by own cat 06/28/24 15:32 early yesterday morning. seen yesterday at urgent care after swelling increased. given amoxicillin but today has red streaks going up arm. pulse intact. 2 bite ford noted on hand. area clean and dry. (Last Updated 04/30/24 @ 08:54 by Deanne Donato RN) History of hysterectomy History of appendectomy Most Recent Vital Signs Temperature 98.9 F 06/28/24 15:32 Temperature Source Oral 06/28/24 15:32 Pulse 89 06/28/24 17:35 Respiratory Rate 16 06/28/24 15:32 Blood Pressure 217/100 H 06/28/24 17:31 Blood Pressure Mean 132 06/28/24 17:31 Blood Pressure Position Sitting 06/28/24 15:32 Pulse Oximetry 98 06/28/24 17:35 Oxygen Delivery Method Room Air 06/28/24 15:32 Oxygen Flow Rate 0 06/28/24 15:32 Pain Level 9 06/28/24 15:32 Comment BP normally 150's systolic states BP was high at last night 06/28/24 15:32 Allergies codeine Allergy (Intermediate, Unverified 06/28/24 15:42) Nausea IV IV Catheter Type [Right Saline Lock Antecubital] IV Catheter Type [Left] Saline Lock IV Catheter Gauge [Right 18 Antecubital] IV Catheter Gauge [Left] 18 Diet Orders Category Date Time Status Regular/Normal [DIET] Nutrition 06/28/24 Dinner Active Diagnostics 06/28/24 Range/Units 16:10 WBC 12.45 H (4.4-10.8) 10^3/uL RBC 5.20 (3.93-5.22) 10^6/uL Hgb 15.3 (11.2-15.7) g/dL Hct 45.9 (36.0-46.0) % MCV 88 (80-95) fL MCH 29.4 (27.0-33.0) pg MCHC 33.3 (32.0-36.0) % RDW 12.9 (11.7-14.6) % Plt Count 279 (130-400) 10^3/uL MPV 10.9 (8.0-11.0) fL Immature Gran % 0.5 % Neutrophils % 86.8 % Lymphocytes % 6.3 % Monocytes % 4.8 % Eosinophils % 1.4 % Basophils % 0.2 % Nucleated RBC % 0.0 (0.0-0.3) % Absolute Neutrophils 10.81 H (1.2-6.7) 10^3/uL Absolute Lymphocytes 0.78 L (1.2-3.4) 10^3/uL Absolute Monocytes 0.60 (0.1-0.8) 10^3/uL Absolute Eosinophils 0.17 (0.0-0.7) 10^3/uL Absolute Basophils 0.02 (0.0-0.2) 10^3/uL ESR 19 (0-30) mm/hr VBG Lactate 1.0 (<or=2.0) mmol/L Sodium 141 (136-145) mmol/L Potassium 3.9 (3.5-5.1) mmol/L Chloride 103 (98-107) mmol/L Carbon Dioxide 28.9 (21.0-32.0) mmol/L Anion Gap 9.1 (3-11) mmol/L BUN 9 (7-18) mg/dL Creatinine 0.6 (0.55-1.02) mg/dL Est GFR (CKD-EPI 2020) 92.39 (mL/min/1.73m2) Glucose 175 H (74-106) mg/dL Calcium 9.3 (8.5-10.1) mg/dL C-Reactive Protein 8.35 H (<or=0.5) mg/dL 06/28/24 16:52 Blood Culture - Pending Blood 06/28/24 16:10 Blood Culture - Pending Blood Intake and Output - 24 Hour Total 06/28/24 15:30 thru 06/28/24 15:32 Weight 170 lb Falls Risk Assessment Contributing Factors No Factors 06/28/24 15:42 Fall Total Score 0 06/28/24 15:42 Level of Risk Standard/Low Risk 06/28/24 15:42 Problems (Last Reviewed 09/09/22 @ 14:53 by Amos Warren NP) Cat bite of right hand (Acute) Type 2 diabetes mellitus (Acute) v v v v v v v v v Sending and/or Receiving Nurses: Please use comment section below to note any information pertinent to the patient hand-off not included above. Information / Comments: Report received from: Naima Hsieh RN
[2024-06-28] MEDS: hydrALAZINE 20 MG/ML VIAL 10 MG IVP (18:42)
[2024-06-28] MEDS: Enoxaparin 40 MG/0.4 ML SYR SC (18:58)
[2024-06-29 01:31] VITALS: BP 145/78
[2024-06-29 01:33] VITALS: BP 145/78; RESP 16
[2024-06-29] MEDS: AMPICILLIN/SULBACTAM 3 GM in Normal Saline 100 ML IVPB ×3 (04:00→16:18)
[2024-06-29] MEDS: Normal Saline Flush 10 ML SYR (04:04)
[2024-06-29 07:08] LABS: Abs Immature Grans 0.03 10^3/uL (0.0-0.06); Absolute Basophil Count 0.02 10^3/uL (0.0-0.2); Absolute Eosinophil Count 0.32 10^3/uL (0.0-0.7); Absolute Lymphocyte Count 1.39 10^3/uL (1.2-3.4); Absolute Neutrophil Count 5.34 10^3/uL (1.2-6.7); Basophils % 0.3 %; Eosinophils % 4.2 %; HCT 37.6 % (36.0-46.0); HGB 12.8 g/dL (11.2-15.7); Immature Grans % 0.4 %; Lymphocytes % 18.1 %; MCH 29.4 pg (27.0-33.0); MCV 86 fL (80-95); MPV 11.1 fL (8.0-11.0); Monocytes % 7.8 %; Neutrophils % 69.2 %; Platelet Count 231 10^3/uL (130-400); RBC 4.36 10^6/uL (3.93-5.22); RDW 12.9 % (11.7-14.6); RDW-SD 40.5 fL
[2024-06-29 07:32] LABS: ALT 15 U/L (14-59); AST 9 U/L (15-37); Albumin 2.9 g/dL (3.4-5.0); Alkaline Phosphatase 90 U/L (46-116); Anion Gap 6.5 mmol/L (3-11); BUN 8 mg/dL (7-18); Bilirubin, Total 0.59 mg/dL (0.2-1.0); CO2 26.5 mmol/L (21.0-32.0); CREATININE 0.6 mg/dL (0.55-1.02); Chloride 106 mmol/L (98-107); Estimated GFR 92.39 (mL/min/1.73m2); Glucose 192 mg/dL (74-106); Potassium 3.6 mmol/L (3.5-5.1); Sodium 139 mmol/L (136-145); Total Protein 5.9 g/dL (6.4-8.2)
[2024-06-29 07:35] VITALS: BP 155/74; PULSE 85; RESP 16; TEMP 36.8; O2SAT 94
--- NOTE | 2024-06-29 10:14 | W.ORTHOCONSU ---
Date of service: 06/29/24 Time of Service: 08:05 History of Present Illness History of Present Illness Chief Complaint: Right Hand Cat Bite Narrative: Brie is a 79-year-old female who suffered a cat bite to the dorsum of the right hand with 2 primary puncture wounds 1 about the base of the thumb and the other slightly over the base of the second metacarpal, which occurred on June 27. She had some swelling which developed relatively quickly and she presented to the urgent care and was started on Augmentin. However, she said it caused nausea and she vomited soon thereafter. She has had no other antibiotics. It was getting worse and therefore she presented to the emergency department yesterday evening. X-rays of the hand were negative. She did not have signs or symptoms of flexor tenosynovitis and thus she was admitted to the hospital service for IV antibiotics. She reports this morning that the hand is at least 50% better. She feels that she is able to move her thumb and her hand much more than she was. She feels that the redness is also improved. She is a diabetic and also smokes. Consults Consult date: 06/29/24 Requesting physician: Sander Chase Consult Reason Right hand cat bite Assessment and Plan Assessment and plan (1) Cat bite of right hand: Status: Acute Assessment and plan: Brie is a 79-year-old diabetic, smoker, obese female who had a cat bite to the dorsum of her right hand. There are no overt signs of septic arthritis or suppurative flexor tenosynovitis. She does have improved with antibiotics. She really has just started getting treated with antibiotics and I expect this can be treated with antibiotics alone. However, cat bites have a high risk for seeding the deep space of the hand. Nevertheless, she is improving with minimal antibiotics and there are no concerning features at this point so I do think we can continue with antibiotic treatment. She reports being quite sensitive to medications and only tolerate penicillin. I was very honest with her when I saw her that penicillin only is not a treatment option here. There are other options we can try instead of the Augmentin, which is the first-line medication. Any the fluoroquinolone should provide broaden the coverage to candidal strep, staph, Pasteurella, and anaerobes. It is imperative that we treat this aggressively initially otherwise has a high rate of failure needing more intensive treatments, potential leading to more septic picture, but also developing a deep abscess requiring surgical intervention. It is also imperative that she managed her glucose aggressively. I encouraged her to keep the hand elevated all times. She may apply ice. I also discussed the use of the splint to rest the hand but at this point we will forego that. We will have close follow-up by phone if she discharges today. I also do not there is anything wrong with doing another 24 hours of IV antibiotics., The patient would like to discharge to home and thus I would get at least another single dose of IV antibiotics today and then trial oral antibiotics for likely discharge. I will call the patient to discuss her progress and follow-up if needed next week in the office Review of Systems All systems reviewed & are unremarkable except as noted in HPI and below PFSH All Active Problems Cat bite of right hand (Acute) Carpal tunnel syndrome, left (Acute) Steroid injection: 05/27/2024 Essential hypertension (Acute) Obesity (Chronic) Hyperlipidemia (Acute) Type 2 diabetes mellitus (Acute) Otalgia, right ear (Acute) Tobacco use (Acute) Surgical History History of hysterectomy History of appendectomy Social History Smoking/Tobacco Use Status: Current every day Tobacco Type: cigarettes Smoking risk assessment performed?: Yes Alcohol Intake: never Substance use type: does not use Housing: house Do you feel safe at home: Yes Do you feel safe in your relationship?: Yes Additional Social history: with pt Exam Narrative Exam Narrative: Sitting up on the edge of the bed. No acute distress. Alert orient x 3. Evaluation of the right hand shows some fullness to the hand itself diffusely but also concentrates slightly over the dorsal aspect of the right hand in the first webspace. There is 2 puncture wounds which have eschar over the dorsum of the hand, one at the base of the first metacarpal and the other towards the base of the second metacarpal. There is no palpable fluctuance. There is pain to palpation. There is some faint erythema seen extending up the forearm which she reports is much better than it was yesterday. She is able demonstrate some active thumb flexion and extension. She does have a shortened arc but within this arc she has no pain. She does have pain to palpation throughout the first metacarpal, first webspace dorsally. Mild pain palmarly. Gentle passive circumduction of the thumb does not seem to increase pain significantly. She does have pain to palpation overlying the first CMC joint although there is no fluctuance. I cannot detect any area of fluctuance. There is no drainage. Results Last Vital Signs Temp 36.8 C 06/29/24 07:35 Pulse 85 06/29/24 07:35 Resp 16 06/29/24 07:35 BP 155/74 H 06/29/24 07:35 Pulse Ox 94 06/29/24 07:35 Labs 06/29/24 06:38 06/29/24 06:38 Labs: Laboratory Results - last 24 hr 06/28/24 06/29/24 16:10 06:38 WBC 12.45 H 7.70 RBC 5.20 4.36 Hgb 15.3 12.8 D Hct 45.9 37.6 MCV 88 86 MCH 29.4 29.4 MCHC 33.3 34.0 RDW 12.9 12.9 Plt Count 279 231 MPV 10.9 11.1 H Immature Gran % 0.5 0.4 Neutrophils % 86.8 69.2 Lymphocytes % 6.3 18.1 Monocytes % 4.8 7.8 Eosinophils % 1.4 4.2 Basophils % 0.2 0.3 Nucleated RBC % 0.0 0.0 Absolute Neutrophils 10.81 H 5.34 Absolute Lymphocytes 0.78 L 1.39 Absolute Monocytes 0.60 0.60 Absolute Eosinophils 0.17 0.32 Absolute Basophils 0.02 0.02 ESR 19 VBG Lactate 1.0 Sodium 141 139 Potassium 3.9 3.6 Chloride 103 106 Carbon Dioxide 28.9 26.5 Anion Gap 9.1 6.5 BUN 9 8 Creatinine 0.6 0.6 Est GFR (CKD-EPI 2020) 92.39 92.39 Glucose 175 H 192 H Calcium 9.3 9.0 Total Bilirubin 0.59 AST 9 L ALT 15 Alkaline Phosphatase 90 C-Reactive Protein 8.35 H Total Protein 5.9 L Albumin 2.9 L Imaging Imaging Studies: X-ray of the right hand shows some mild arthritic change but no other suspicious findings. No retained foreign bodies.
[2024-06-29 11:00] VITALS: BP 155/79; PULSE 84; RESP 16; TEMP 36.6; O2SAT 94
[2024-06-29] MEDS: Insulin Glargine 300 UNITS/3 ML PEN 20 UNITS SC (13:42)
[2024-06-29 15:21] VITALS: BP 141/82; PULSE 85; RESP 16; TEMP 36.6; O2SAT 95
--- NOTE | 2024-06-29 15:24 | PGE_ITS ---
Date of Service Date of service: 06/29/24 Time of Service: 15:24 Assessment and Plan Assessment and plan (1) Type 2 diabetes mellitus: Status: Acute Assessment and plan: PT does take lantus only and does not appear to be on any daniel inhibitors. Her last a1c was fair but would recommend outpatient optimization (2) Cat bite of right hand: Status: Acute Assessment and plan: Pt failed outpatient Augmentin but it was more of a tolerance issue than actual antibiotic failure. None the less we will start her on Unasyn and monitor for improvements. Per my discussion with Dr Juares (ED), Orthopaedics is aware and has viewed the films 2.06.22 Pt does report multiple sensitivities to abx. Evidently she has been given bactrim in the past (11/29/19) without reported issue. My plan is to dc her on bactrim and flagyl. Luckily, there are multiple possibilities such as doxy/levaquin/bactrim/avelox among others. There is a recommendation to treat with flagyl or clindamycin if not on avelox Subjective Subjective Interval history since last seen: Pt states that her RUE has improved. Consult from Ortho reviewed Exam Narrative Exam Narrative: Head eyes ears nose and throat: Normocephalic atraumatic mucous membranes moist oropharynx is clear Neck: No lymphadenopathy no JVD no thyromegaly Cardiovascular: Tachycardia but no murmur rubs or gallops Pulm: Clear to auscultation bilaterally with good air exchange no accessory muscle use noted Abdomen: Soft nontender nondistended bowel sounds active Extremities: Right upper extremity does show some erythema and edema in her right hand mostly on the dorsal surface. There is a mild streak in the ventral surface going up her forearm. Her hand is warm to touch. She can make a fist but not complete pleat closure. Neurologic: Cranial nerves II through XII are intact as tested reflexes upper extremity normal as tested Psych: Alert and orient x 3 no apparent distress General: 79-year-old female appears her stated age no apparent distress Objective Last Vital Signs Temp 36.6 C 06/29/24 15:21 Pulse 85 06/29/24 15:21 Resp 16 06/29/24 15:21 BP 141/82 H 06/29/24 15:21 Pulse Ox 95 06/29/24 15:21 Laboratory Results - last 24 hr 06/28/24 06/29/24 16:10 06:38 WBC 12.45 H 7.70 RBC 5.20 4.36 Hgb 15.3 12.8 D Hct 45.9 37.6 MCV 88 86 MCH 29.4 29.4 MCHC 33.3 34.0 RDW 12.9 12.9 Plt Count 279 231 MPV 10.9 11.1 H Immature Gran % 0.5 0.4 Neutrophils % 86.8 69.2 Lymphocytes % 6.3 18.1 Monocytes % 4.8 7.8 Eosinophils % 1.4 4.2 Basophils % 0.2 0.3 Nucleated RBC % 0.0 0.0 Absolute Neutrophils 10.81 H 5.34 Absolute Lymphocytes 0.78 L 1.39 Absolute Monocytes 0.60 0.60 Absolute Eosinophils 0.17 0.32 Absolute Basophils 0.02 0.02 ESR 19 VBG Lactate 1.0 Sodium 141 139 Potassium 3.9 3.6 Chloride 103 106 Carbon Dioxide 28.9 26.5 Anion Gap 9.1 6.5 BUN 9 8 Creatinine 0.6 0.6 Est GFR (CKD-EPI 2020) 92.39 92.39 Glucose 175 H 192 H Calcium 9.3 9.0 Total Bilirubin 0.59 AST 9 L ALT 15 Alkaline Phosphatase 90 C-Reactive Protein 8.35 H Total Protein 5.9 L Albumin 2.9 L Time Spent with Patient Time Spent with Patient: 35-49 minutes Time was spent: preparing to see the patient(eg.review tests), ordering medications,tests, procedures, referring, communicating with other health child care center administrator, indepentently interpreting results, counseling the patient and care coordination
--- NOTE | 2024-06-29 16:55 | W.PM.DS.N ---
Date of service: 06/29/24 Time of Service: 16:54 DS: Diagnosis Discharge Diagnosis (1) Type 2 diabetes mellitus: Status: Acute (2) Cat bite of right hand: Status: Acute Discharge Plan Disposition Patient Disposition: Home Condition: Improving Discharge Details Reason For Visit: cat bite Admit Date/Time: 06/28/24 17:26 Admit Provider: Sander Chase Attending Provider: Sander Chase Primary Care Provider: Brie Robles Hospital Course Hospital Course: This is a 79-year-old female who was admitted to the hospitalist service after sustaining a cat bite to the dorsum of her right hand. At the time of admission the plan was to start on Unasyn and consult orthopedics. The patient was treated in the outpatient setting with Augmentin which is an appropriate antibiotic but could not tolerate due to GI side effects. On 29 June the patient has to be discharged home as she states she felt much better. In fact her physical exam had improved. I would prefer the patient stay in the hospital and take her oral medications to make sure she tolerates them before discharge but she was fairly adamant about wanting to go home. Chart review indicated that in the past she had taken Bactrim and there was no apparent side effects. The plan on discharge was to send her home with Bactrim and Flagyl which according to up-to-date is the appropriate or at least one of the appropriate treatments. I will place the imaging as well as the consult assessment and the note for convenience hand xray IMPRESSION: Dorsal soft tissue swelling. No fractures. Given the history here there is most probably tenosynovitis, possibly infected/purulent. Recommend follow-up MRI. Assessment and plan: Brie is a 79-year-old diabetic, smoker, obese female who had a cat bite to the dorsum of her right hand. There are no overt signs of septic arthritis or suppurative flexor tenosynovitis. She does have improved with antibiotics. She really has just started getting treated with antibiotics and I expect this can be treated with antibiotics alone. However, cat bites have a high risk for seeding the deep space of the hand. Nevertheless, she is improving with minimal antibiotics and there are no concerning features at this point so I do think we can continue with antibiotic treatment. She reports being quite sensitive to medications and only tolerate penicillin. I was very honest with her when I saw her that penicillin only is not a treatment option here. There are other options we can try instead of the Augmentin, which is the first-line medication. Any the fluoroquinolone should provide broaden the coverage to candidal strep, staph, Pasteurella, and anaerobes. It is imperative that we treat this aggressively initially otherwise has a high rate of failure needing more intensive treatments, potential leading to more septic picture, but also developing a deep abscess requiring surgical intervention. It is also imperative that she managed her glucose aggressively. I encouraged her to keep the hand elevated all times. She may apply ice. I also discussed the use of the splint to rest the hand but at this point we will forego that. We will have close follow-up by phone if she discharges today. I also do not there is anything wrong with doing another 24 hours of IV antibiotics., The patient would like to discharge to home and thus I would get at least another single dose of IV antibiotics today and then trial oral antibiotics for likely discharge. I will call the patient to discuss her progress and follow-up if needed next week in the office Home Meds and New Rx's Prescriptions: New sulfamethoxazole-trimethoprim [Bactrim DS] 800-160 mg tablet 1 tab PO BID Qty: 20 0RF metronidazole 500 mg tablet 500 mg PO TID Qty: 30 0RF No Action insulin glargine [Lantus Solostar U-100 Insulin] 100 unit/mL (3 mL) insulin pen 5 unit subcut QAM nabumetone 500 mg tablet 500 mg PO DAILY PRN amoxicillin-pot clavulanate 875-125 mg tablet 1 tab PO BID pot bicarb-sod bicarb-cit ac Tablet, Effervescent 1 tab PO PRN Discharge Instructions Stand Alone Forms: Nursing Discharge Form Referrals: Brie Robles [Primary Care Provider] - (follow up in 3-5 days) Abimael Hardin MD [ [facility] STAFF PHYSICIAN] - (follow up as scheduled) Activity:: Activity as Tolerated Equipment/Supplies:: No Equipment Needed Diet:: As Tolerated Discharge Orders Discharge Orders: Discharge Order (Routine); Ordered 06/29/24 Ordered By: Sander Chase DS: Summary Time Spent with Patient providing and/or coordinating discharge services: Less than 30 minutes Status at Discharge Functional status at discharge: independent ambulation Overall status at discharge: patient is back to baseline Mental Status: mental status grossly normal Speech and Movement: speech and movement normal Mood: congruent mood Affect: normal affect Quality:SDOH Health Related Social Needs: No Data to Display Exam Narrative Exam Narrative: Head eyes ears nose and throat: Normocephalic atraumatic mucous membranes moist oropharynx is clear Neck: No lymphadenopathy no JVD no thyromegaly Cardiovascular: Tachycardia but no murmur rubs or gallops Pulm: Clear to auscultation bilaterally with good air exchange no accessory muscle use noted Abdomen: Soft nontender nondistended bowel sounds active Extremities: Right upper extremity does show some erythema and edema in her right hand mostly on the dorsal surface. There is a mild streak in the ventral surface going up her forearm. Her hand is warm to touch. She can make a fist but not complete pleat closure. Neurologic: Cranial nerves II through XII are intact as tested reflexes upper extremity normal as tested Psych: Alert and orient x 3 no apparent distress General: 79-year-old female appears her stated age no apparent distress Psych Mental Status: mental status grossly normal Speech and Movement: speech and movement normal Mood: congruent mood Affect: normal affect DS: Data Vitals/I&O Vitals and I&O: Vital Signs Temperature 36.6 C 06/29/24 15:21 Temperature Source Tympanic 06/29/24 15:21 Pulse 85 06/29/24 15:21 Pulse Rhythm Regular 06/28/24 18:15 Respiratory Rate 16 06/29/24 15:21 Respiratory Effort Normal 06/28/24 18:15 Respiratory Depth Normal 06/28/24 18:15 Respiratory Pattern Normal 06/28/24 18:15 Blood Pressure 141/82 H 06/29/24 15:21 Blood Pressure Mean 132 06/28/24 17:31 Blood Pressure Position Sitting 06/28/24 15:32 Pulse Oximetry 95 06/29/24 15:21 Oxygen Delivery Method Room Air 06/29/24 15:21 Oxygen Flow Rate 0 06/29/24 15:21 Pain Level 5 06/29/24 07:35 Comment BP normally 150's systolic states BP was high at last night 06/28/24 15:32 Intake & Output 06/28/24 06/29/24 06/29/24 23:59 11:59 23:59 Intake Total 1000 / 1000 1040 / 1040 Output Total 1100 / 1100 Balance 1000 / 1000 -60 / -60 Weight 78.188 kg Intake: IV 1000 / 1000 200 / 200 Oral 840 / 840 Output: Urine 1100 / 1100 Other: Urine Color Straw Urine Appearance Clear Urine Odor None Data Completed and Pending Labs on day of discharge: Labs from last 24 hours 06/29/24 06:38 WBC 7.70 RBC 4.36 Hgb 12.8 D Hct 37.6 MCV 86 MCH 29.4 MCHC 34.0 RDW 12.9 Plt Count 231 MPV 11.1 H Immature Gran % 0.4 Neutrophils % 69.2 Lymphocytes % 18.1 Monocytes % 7.8 Eosinophils % 4.2 Basophils % 0.3 Nucleated RBC % 0.0 Absolute Neutrophils 5.34 Absolute Lymphocytes 1.39 Absolute Monocytes 0.60 Absolute Eosinophils 0.32 Absolute Basophils 0.02 Sodium 139 Potassium 3.6 Chloride 106 Carbon Dioxide 26.5 Anion Gap 6.5 BUN 8 Creatinine 0.6 Est GFR (CKD-EPI 2020) 92.39 Glucose 192 H Calcium 9.0 Total Bilirubin 0.59 AST 9 L ALT 15 Alkaline Phosphatase 90 Total Protein 5.9 L Albumin 2.9 L 06/28/24 16:52 Blood Blood Culture - Pending 06/28/24 16:10 Blood Blood Culture - Pending Preliminary micro results at discharge 06/28/24 16:52 Blood Culture - Pending Blood 06/28/24 16:10 Blood Culture - Pending Blood PFSH All Active Problems Cat bite of right hand (Acute) Carpal tunnel syndrome, left (Acute) Steroid injection: 05/27/2024 Essential hypertension (Acute) Obesity (Chronic) Hyperlipidemia (Acute) Type 2 diabetes mellitus (Acute) Otalgia, right ear (Acute) Tobacco use (Acute) Surgical History History of hysterectomy History of appendectomy Social History Smoking/Tobacco Use Status: Current every day Tobacco Type: cigarettes Smoking risk assessment performed?: Yes Alcohol Intake: never Substance use type: does not use Housing: house Do you feel safe at home: Yes Do you feel safe in your relationship?: Yes Additional Social history: with pt Time Spent with Patient Time Spent with Patient: <45 minutes Time was spent: preparing to see the patient(eg.review tests), ordering medications,tests, procedures, referring, communicating with other health managed care provider, counseling the patient and care coordination
--- NOTE | 2024-06-29 17:09 | PDOC.CMIN ---
Date of service: 06/29/24 Time of Service: 17:09 Care Management Initial Assmt Initial Assessment Reason for Hospitalization: cat bite Functional Status/Living Situation Patient Presentation: Brie was sitting up on the edge of her bed when CM met with her. She stated that per MD, it is recommended that she remain in the hospital for IV antibiotics, since she failed outpatient treatment, but she is insistent that she wants to discharge home today. She stated that she feels well, and the swelling in her hand has gone down considerably. 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 She is independent at baseline and does not anticipate the need for services in the community at this time. CM will continue to follow. Town of Residence: [place] Resides with: Spouse Significant Other/Family: Out of area Natural Supports: , José Three children and five grandchildren, all live out of the area, besides one daughter who lives in [facility]. Employment Status: Retired Instrumental Activities of Daily Living (ADLs): Independent Medications Medication Management: No Issues/Barriers identified Advance Directives Advance Directives: Do you have an Advance Directive: N 09/13/16 14:28 AD On File at [facility]: N 08/10/12 11:26 Date Asked 06/28/24 06/28/24 15:48 AD Date Reviewed COLST On File at [facility] No 06/28/24 15:48 COLST Date Scanned Code Status Resuscitation Status Full Code Insurance Coverage/Financial Issues Insurance: [facility] supplement Care Team Visit Care Team Role Provider Type Brie Robles Primary Care Provider NON-[facility] STAFF PHYSICIAN Amparo Carbajal Other Providers DUMP MOTOR OPERATOR Sachi Ventura Other Providers DUMP MOTOR OPERATOR Shira Figueroa Other Providers DUMP MOTOR OPERATOR Isha Acuna RN Other Providers DUMP MOTOR OPERATOR Angel Juares MD Emergency Provider [facility] STAFF PHYSICIAN Sander Chase MD Admit Provider [facility] STAFF PHYSICIAN Attending Provider Discharge Potential Discharge Needs: PCP F/U Appt Anticipated Barriers to Discharge: None Identified Patient/Family Education Needs: Review discharge instructions, discuss Ask Me Three Transportation: Private vehicle Plan: Anticipate Brie will return home once medically cleared. Her will drive her home via private vehicle. She will follow up with her PCP and discharge plan of care. CM will continue to follow. Social Determinants of Health Screening Social Determinants of Health last assessed: 06/29/24 Will the Patient Participate in the Screening?: Yes Do you worry about having a steady place to live?: no Problems where you live: no known problems In the past 12 months, have you had to go without electric, gas, oil or water in your home?: no Have you or anyone in your house had to go without enough food to eat?: no Has lack of transportation kept you from medical appointments or from doing things needed for daily living?: no Has anyone in your life made you feel unsafe or unsupported?: no How hard is it for you to pay for the very basics like food, housing, medical care, and heating? Would you say it is:: Not hard at all Do you want help finding or keeping work or a job?: I do not need or want help If for any reason you need help with day-to-day activities such as bathing, preparing meals, shopping, managing finances, etc., do you get the help you need?: I don?t need any help How often do you feel lonely or isolated from those around you?: Never Do you speak a language other than [place] at home?: No Does the patient want assistance with any of the above?: No PFSH All Active Problems Cat bite of right hand (Acute) Carpal tunnel syndrome, left (Acute) Steroid injection: 05/27/2024 Essential hypertension (Acute) Obesity (Chronic) Hyperlipidemia (Acute) Type 2 diabetes mellitus (Acute) Otalgia, right ear (Acute) Tobacco use (Acute) Surgical History History of hysterectomy History of appendectomy Social History Smoking/Tobacco Use Status: Current every day Tobacco Type: cigarettes Smoking risk assessment performed?: Yes Alcohol Intake: never Substance use type: does not use Housing: house Do you feel safe at home: Yes Do you feel safe in your relationship?: Yes Additional Social history: with pt
--- NOTE | 2024-06-29 17:14 | PDOC.CMDIS ---
Date of service: 06/29/24 Time of Service: 17:14 LACE Index Scoring Tool Questions: Length of Stay (in days): 1 Was the patient admitted via the E.D.?: Yes Comorbidities: Diabetes w/o Complication E.D. Visits: 0 Answers: Total Score: 5 Risk of Readmission: Low Risk Care Management Discharge Plan Reason for Hospitalization: cat bite Discharge Plan: Brie returned home today with no new services. She was transitioned to oral antibiotics, at her request, although the MD preferred that she remain for IV antibiotics. She was insistent that she discharge home today; she will have close follow up by phone, if needed. Her drove her home via private vehicle. She will follow up with her PCP and discharge plan of care. Patient/Family Education Needs: Review discharge instructions and limitations, discussion of self care needs including ask me three. SDOH Health Related Social Needs: No Data to Display
== END 2024-06-29 17:25 | disposition home or self-care (01) | DRG 605 ==
LOC: ER 18:06 → MS 18:08
PROVIDERS: Admitting Provider Hospitalist; Emergency Provider Emergency Medicine; PCP Family Medicine; Visit Provider Hospitalist
DX: S61.451A Open bite of right hand, initial encounter; L08.9 Local infection of the skin and subcutaneous tissue, unspecified; E11.9 Type 2 diabetes mellitus without complications; W55.01XA Bitten by cat, initial encounter; Z79.4 Long term (current) use of insulin; I10 Essential (primary) hypertension; F17.210 Nicotine dependence, cigarettes, uncomplicated; E66.9 Obesity, unspecified; G56.02 Carpal tunnel syndrome, left upper limb; D72.829 Elevated white blood cell count, unspecified; Z68.31 Body mass index [BMI] 31.0-31.9, adult
CPT/HCPCS: 00123; 80048; 80053; 85652; 87040; 96365; 99222; 99285; J1650; 73130; 83605; 85025; 86140; 99239; J0295; J0360; J1815; J3372

== ENCOUNTER → 2024-07-08 10:10 | Outpatient (BNVA) | payer MEDICARE, SELFPAY | PROVIDERS: PCP Family Medicine; Referring Provider Family Medicine; Visit Provider Student in an Organized Health Care Education/Training Program | DX: S61.451D Open bite of right hand, subsequent encounter (principal); W55.01XD Bitten by cat, subsequent encounter | CPT/HCPCS: 99213 ==

== ENCOUNTER → 2024-07-24 14:56 | Outpatient (BNVA) | payer MEDICARE, SELFPAY | PROVIDERS: PCP Family Medicine; Referring Provider Family Medicine; Visit Provider Podiatrist | DX: I87.2 Venous insufficiency (chronic) (peripheral) (principal); L97.522 Non-pressure chronic ulcer of other part of left foot with fat layer exposed; R23.8 Other skin changes; G62.9 Polyneuropathy, unspecified | CPT/HCPCS: 29580; 99214; 29850 ==